=== PATIENT | female | born 1985 | race Caucasian/White ===

== ENCOUNTER 2016-02-12 17:48 | Emergency (ER) | payer OTHER ==
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
--- NOTE | 2016-02-12 23:39 | ED MED RECONCILIATION SUMMARY ---
Patient: FELIBERTO CHAVIRA Medication Reconciliation Report [facility] VisitID: [id number] [place] [address] 31y, F Registration Date/Time: 02/12/2016 Weight: 106.5 kg Height/Length: 64 in. BMI: 40.3 ALLERGIES: No Known Drug Allergy The patient's Home Medications are listed below: NONE. The source(s) of the original Home Medication information: Not obtained. The following Medications were given to the patient in the Emergency Department: None. The following Medications were prescribed to the patient: Bactroban 2% ointment: apply small amount to affected area three times daily for 5 days. Dispense twenty-two (22) grams. No refills. Substitution is permissible. -- Mary Davis A.R.N.P.
--- NOTE | 2016-02-12 23:39 | ED MAR SUMMARY ---
..... Medication Administration Record [facility] [address], [place] [id number] Patient: FELIBERTO CHAVIRA Visit ID: [id number] 31y, F Weight: 106.5 kg Height/Length: 64 in BMI: 40.3 ALLERGIES: No Known Drug Allergy
--- NOTE | 2016-02-12 23:39 | ED MED RECONCILIATION SUMMARY ---
Patient: FELIBERTO CHAVIRA Medication Reconciliation Report [facility] VisitID: [id number] [place] [address] 31y, F Registration Date/Time: 02/12/2016 Weight: 106.5 kg Height/Length: 64 in. BMI: 40.3 ALLERGIES: No Known Drug Allergy The patient's Home Medications are listed below: NONE. The source(s) of the original Home Medication information: Not obtained. The following Medications were given to the patient in the Emergency Department: None. The following Medications were prescribed to the patient: Bactroban 2% ointment: apply small amount to affected area three times daily for 5 days. Dispense twenty-two (22) grams. No refills. Substitution is permissible. -- Mary Davis A.R.N.P.
--- NOTE | 2016-02-12 23:39 | ED MAR SUMMARY ---
..... Medication Administration Record [facility] [address], [place] [id number] Patient: FELIBERTO CHAVIRA Visit ID: [id number] 31y, F Weight: 106.5 kg Height/Length: 64 in BMI: 40.3 ALLERGIES: No Known Drug Allergy
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
== END 2016-02-12 21:15 | disposition home or self-care (01) ==
LOC: ED SRH 17:48
DX: T24.202A Burn of second degree of unspecified site of left lower limb, except ankle and foot, initial encounter (principal); X58.XXXA Exposure to other specified factors, initial encounter; Y93.9 Activity, unspecified; Y92.009 Unspecified place in unspecified non-institutional (private) residence as the place of occurrence of the external cause; Y99.9 Unspecified external cause status